=== PATIENT | female | born 1980 | race Caucasian/White ===

== ENCOUNTER 2025-01-12 07:01 | Emergency (ER) | payer OTHER, SELFPAY ==
[2025-01-12 07:05] VITALS: BP 136/84
--- NOTE | 2025-01-12 07:53 | ED.GENMED ---
History of Present Illness
General
Chief Complaint: Oral/Mouth Problem
Source: patient
Exam Limitations: none
Time Seen by Provider: 01/12/25 07:35
Nursing documentation reviewed up to this point in time: agreed with
History of Present Illness
History of Present Illness:
44-year-old female presenting to the emergency department today with concerns of an ulcer to the left side of her tongue that started 5 days ago seems to be worsening. There is a burning sensation to the tongue. Otherwise she is noticed discomfort
into the neck as well. Denies any fevers trouble swallowing or breathing denies chest pain or shortness of breath.
Review of Systems
Review of Systems
Allergies reviewed?: Yes
All Other Systems: ROS reviewed and negative except as documented in HPI and ROS
Phy Exam
Physical Exam
Physical Exam:
GENERAL: Alert , in no apparent distress
EYE: pupils equal and reactive
NECK: Supple, no significant adenopathy.
ENT: At this ulcer to the left posterior tongue laterally roughly 5 mm in diameter. Shallow. No bleeding no redness or warmth. o/p clr, mmm.
CARDIAC: Regular rate and rhythm .
LUNGS: Clear breath sounds bilaterally, no acute respiratory distress, no wheezes/rales/rhonchi
ABDOMEN: Soft, without focal tenderness, no r/g, no cvat
NEUROLOGICAL: Alert and oriented, no focal neuro deficits
SKIN: Warm and dry, skin intact.
MUSCULOSKELETAL: No edema, well perfused.
PSYCH: Normal and appropriate interaction.
Course
Vital Signs
Initial and Last Documented VS:
Initial Vital Signs
Temp Pulse Resp BP Pulse Ox
97.8 F 72 16 136/84 100
01/12/25 07:05 01/12/25 07:05 01/12/25 07:05 01/12/25 07:05 01/12/25 07:05
Last Documented Vital Signs
Temp Pulse Resp BP Pulse Ox
97.8 F 72 16 136/84 100
01/12/25 07:05 01/12/25 07:05 01/12/25 07:05 01/12/25 07:05 01/12/25 07:05
MDM/Problems Addressed
MDM/Problems Addressed:
44-year-old female presenting to the emergency department today with concerns of a small ulcer to the left posterior tongue. No additional findings no signs of complication. Small mount of lymphadenopathy to the left submandibular region. Stable
for outpatient treatments were ordered advised for close outpatient follow-up.
*Critical Care Note
Total Time (30-74mins, 75-104mins- exclusive of procedures): Not Applicable
ED Attending Note
-
Portions of this chart may have been created with voice recognition software.� Occasional wrong word or��sound alike� substitutions may have occurred due to the inherent limitations of voice recognition software.
Discharge Plan
Departure
Patient Disposition: Home (Routine Discharge)
Date of Disposition: 01/12/25
Time of Disposition: 07:54
Patient with high blood pressure during this ER visit?: No
Condition: Good
Covid-19: Not Applicable
Discharge Problem:
Oral aphthous ulcer
Instructions: Mouth sores
Prescriptions:
New
Ulcerease 0.6 % liquid
1 ea mucous membrane BID Qty: 178 0RF
Activity Restrictions/Additional Instructions:
You came to the emergency department today with concerns of an ulcer of your tongue. No signs of complication here. Please use the mouthwash and otherwise follow-up closely as an outpatient. Return for any worsening, new or concerning symptoms.
Interventions
Interventions:
*Risk Screen - Suicide Last Done: 01/12/25 07:05
*Neglect/Abuse Screening Last Done: 01/12/25 07:05
Discharge Date and Time
Print Language: SWEDISH
[2025-01-12 07:56] VITALS: BP 125/81; BMI 22.8
== END 2025-01-12 08:12 | disposition home or self-care (01) ==
LOC: EMR 07:01
PROVIDERS: EMERGENCY PHYSICIAN Emergency Medicine; FAMILY PHYSICIAN Internal Medicine
DX: K12.0 Recurrent oral aphthae (principal)
CPT/HCPCS: 99282

== ENCOUNTER 2025-04-14 22:55 | Emergency (ER) | payer OTHER, SELFPAY ==
[2025-04-14 22:57] VITALS: BP 138/87
--- NOTE | 2025-04-15 00:44 | ED.GENMED ---
History of Present Illness
General
Chief Complaint: Eye Problems
Source: patient
Exam Limitations: none
Time Seen by Provider: 04/15/25 00:00
Nursing documentation reviewed up to this point in time: agreed with
History of Present Illness
History of Present Illness:
45-year-old female with no significant chronic medical issues presents for evaluation of foreign body sensation of the right eye. Patient says that she was taking her contact lenses out tonight; her left contact lens came out easily but she did not
feel her right contact come out and she feels it is stuck in her eye. She tried to remove multiple times without success and so she came to the ER. She complains of foreign body sensation in the right eye and some redness of the eye. She denies
any other complaints.
Review of Systems
Review of Systems
All Other Systems: ROS reviewed and negative except as documented in HPI and ROS
EENT: Reports other (Foreign body sensation and redness of the right eye)
Phy Exam
Physical Exam
Physical Exam:
General: Well appearing and non-toxic
HEENT: protecting airway, pupils equal round and reactive to light bilaterally, extraocular movements are intact; on thorough inspection of the right eye including inverting the lid and sweeping the fornices no foreign body or contact noted; on
fluorescein stain of the eye she did have corneal abrasion 9 o'clock position
Neck: appears supple
CV: No evidence of cyanosis
Resp: No accessory muscle use
Abd: Non-distended
Extremities: No deformities
Neuro: Alert
Psych: Normal affect
Skin: Intact
Scores
Heart Failure Risk
Heart Failure Risk Score: Not Applicable
Heart Score for Chest Pain Patients
STEMI patient?: Not applicable
Withdrawal Assessment of Alcohol
Withdrawal Assessment Completed?: Not applicable
Course
Vital Signs
Initial and Last Documented VS:
Initial Vital Signs
Temp Pulse Resp BP Pulse Ox
36.6 C 93 16 138/87 97
04/14/25 22:57 04/14/25 22:57 04/14/25 22:57 04/14/25 22:57 04/14/25 22:57
Last Documented Vital Signs
Temp Pulse Resp BP Pulse Ox
36.6 C 93 16 138/87 97
04/14/25 22:57 04/14/25 22:57 04/14/25 22:57 04/14/25 22:57 04/14/25 22:57
MDM/Problems Addressed
Differential Diagnosis Includes:
Foreign body, corneal abrasion, conjunctivitis
MDM/Problems Addressed:
45-year-old female presents for foreign body sensation of the right eye and concern for retained contact lens. Thorough inspection of the eye revealed no contact lens including on inversion of the lid and sweeping of the fornices. Performed
eyewash again with no foreign body noted. Fluorescein stain did reveal corneal abrasion. Suspect this is likely contributed to foreign body sensation. Will start on ofloxacin drops. Referred to ophthalmology as needed for persistent symptoms.
Advised to avoid using contacts for the next week.
*Pulse Oximetry
SaO2: 97
Oxygen Mode of Delivery: Room air
Patient hypoxic: no (97%)
*Critical Care Note
Total Time (30-74mins, 75-104mins- exclusive of procedures): Not Applicable
Data Reviewed
Source: patient and spouse
ED Attending Note
-
Portions of this chart may have been created with voice recognition software.� Occasional wrong word or��sound alike� substitutions may have occurred due to the inherent limitations of voice recognition software.
Discharge Plan
Departure
Patient Disposition: Home (Routine Discharge)
Date of Disposition: 04/15/25
Time of Disposition: 00:22
Patient with high blood pressure during this ER visit?: No
Discharge Problem:
Abrasion, corneal
Instructions: Corneal Abrasion (DC), Foreign Body in Eye (DC)
Prescriptions:
New
ofloxacin 0.3 % drops
2 drp ophthalmic (eye) QID 5 Days Qty: 10 0RF
No Action
Ulcerease 0.6 % liquid
1 ea mucous membrane BID Qty: 178 0RF
Referrals:
Vladislav Altamirano MD [Active, Ophthalmology] - As needed
Referral Note: Eye Doctor
Activity Restrictions/Additional Instructions:
Thank you for visiting the Emergency Department at [facility].
1. Please schedule a follow up appointment as directed. Call first thing tomorrow morning to make an appointment.
2. If indicated, please take your medications as instructed and indicated on discharge paperwork.
3. If any of your symptoms do not improve, or persist, or become more severe within 6-12 hours, please return to the emergency department for further care.
4. Please return to the emergency department if you develop a headache, neck pain/stiffness, fever greater than 100.4F, chest pain, shortness of breath, persistent nausea, vomiting, slurred speech, difficulty walking, numbness/tingling, weakness,
signs of infection or any other symptoms that are worrisome to you.
Please call [phone] if you have any questions.
Interventions
Interventions:
*Risk Screen - Suicide Last Done: 04/14/25 22:57
*General Assessment Last Done: 04/14/25 23:02
*ED- Fall Risk Assessment Last Done: 04/14/25 23:02
*ED COVID-19 Vaccine History Last Done: 04/14/25 23:02
Discharge Date and Time
Print Language: [id number]
== END 2025-04-15 00:40 | disposition home or self-care (01) ==
LOC: EMR 22:55
PROVIDERS: EMERGENCY PHYSICIAN Emergency Medicine; FAMILY PHYSICIAN Internal Medicine
DX: S05.01XA Injury of conjunctiva and corneal abrasion without foreign body, right eye, initial encounter (principal); X58.XXXA Exposure to other specified factors, initial encounter
CPT/HCPCS: 99283